=== PATIENT | female | born 1950 | race Caucasian/White ===

== ENCOUNTER 2024-01-19 08:46 | Outpatient (CLI) | payer MEDICARE | END 2024-01-19 08:47 | disposition home or self-care (01) | LOC: CSHULT 08:46 | PROVIDERS: ATTEND Internal Medicine Nephrology | DX: I12.9 Hypertensive chronic kidney disease with stage 1 through stage 4 chronic kidney disease, or unspecified chronic kidney disease (principal) | CPT/HCPCS: 76770 ==

== ENCOUNTER 2024-12-31 15:25 | Outpatient (CLI) | payer MEDICARE, MEDICAID | END 2024-12-31 15:26 | disposition home or self-care (01) | LOC: CSHRAD 15:25 | PROVIDERS: ATTEND Internal Medicine Hematology & Oncology | DX: D47.2 Monoclonal gammopathy (principal) | CPT/HCPCS: 77075 ==